=== PATIENT | male | born 1945 | race Two or more races ===

== ENCOUNTER 2017-10-17 20:26 | Emergency (ER) | payer OTHER, SELFPAY ==
[~2017-10-17] VITALS: Ht 162.6 cm; Wt 68.2 kg
[2017-10-17 20:32] VITALS: BP 144/85
[2017-10-17] MEDS ORDERED: SILVER SULF. CRM 1% , 25GM ONE (20:47)
[2017-10-17] MEDS ORDERED: SILVER SULF. CRM 1% , 25GM TP ONE (21:00)
== END 2017-10-17 21:21 | disposition home or self-care (01) ==
LOC: ED 21:15
DX: T22.112A Burn of first degree of left forearm, initial encounter (principal); X12.XXXA Contact with other hot fluids, initial encounter; Y93.89 Activity, other specified; Y92.89 Other specified places as the place of occurrence of the external cause; Y99.0 Civilian activity done for income or pay
CPT/HCPCS: 16020; 99284